=== PATIENT | male | born 1960 | race Caucasian/White ===

== ENCOUNTER 2018-04-01 03:29 | Emergency (ER) | payer SELFPAY ==
[2018-04-01 03:30] VITALS: BP 169/100; PULSE 82; RESP 20; TEMP 38.7; O2SAT 94; BMI 30.2
[2018-04-01 03:39] VITALS: BP 169/100; PULSE 82; RESP 20; TEMP 38.7; O2SAT 94
--- NOTE | 2018-04-01 03:45 | RAD_ITS ---
STUDY: X-RAY CHEST REASON FOR EXAM: Male, 57 years old. Cough TECHNIQUE: Single AP portable view of the chest. COMPARISON: None. FINDINGS: The lungs are clear and expanded. There is no demonstrated pleural abnormality. Normal size heart. Normal mediastinum and joselin. Normal visualized pulmonary arteries. Normal visualized aortic arch and descending thoracic aorta. Normal visualized thoracic spine. Normal visualized ribs, clavicles, and shoulders. There is no demonstrated abnormality of the visualized soft tissue structures of the upper abdomen. RAD/Chest 1 View (Portable) IMPRESSION: Normal x-ray examination of the chest. Electronically Signed: Car Graves MD at 5:02 EST Tel , Service support ,
--- NOTE | 2018-04-01 03:49 | ED.DCSUM_ITS ---
- ER Visit Summary Date of Service: 04/01/18 Chief Complaint: Headache, dizzy, wheezing History of Present Illness: The patient is a 57 M who got sick on March 28 while at work. He states he developed a fever up to 102.1 and had generalized body aches. He was sent home from work early. He has continued to have body aches, fever, congestion and cough with clear sputum. He denies nausea, vomiting, or diarrhea. He reports poor appetite. Physical Examination: Blood pressure is 169/100, temperature 101.6, heart rate 82, respiratory rate 20, pulse ox 94% on room air. Patient sitting upright in bed. He is nontoxic appearing. Head neck examination was TMs to be clear bilaterally. He has moist mucous membranes and unremarkable posterior pharynx. He does have bilateral cervical lymphadenopathy. There is no meningismus. Heart is regular rate and rhythm. Lungs sounds are slightly diminished throughout. Abdomen is soft and nontender. Test Results: CBC and chemistry studies are unremarkable. Portable chest x-ray shows no focal infiltrate. Emergency Department Course and Treatment: Patient received aerosols, Toradol, Tylenol, and IV fluids. On repeat evaluation temperature is 99.3. Patient has improved air movement throughout on auscultation. I believe the patient does have influenza. Patient is outside the treatment window with Tamiflu. This was discussed with him at length. Will be given an inhaler for home. Treatment Plan: [] Disposition: Discharge Impression: Influenza This note was generated with [employer] dictation software. It may contain incorrect words, spelling, and punctuation that were not noted in review of the chart prior to signing ED Disposition - Plan for ED Patient: Referrals: NOT,DEFINED [NON-STAFF] -
[2018-04-01 03:51] VITALS: PULSE 94; RESP 16
[2018-04-01] MEDS: Ipratropium/Albuterol Sulfate 3 ML AMPUL.NEB INHALATION (03:51)
[2018-04-01 04:04] VITALS: PULSE 97; RESP 21
[2018-04-01] MEDS: Acetaminophen 325 MG Tablet 650 MG PO (04:04)
[2018-04-01] MEDS: Albuterol 2.5 MG/3 ML VIAL.NEB. INHALATION ×2 (04:04)
[2018-04-01] MEDS: 0.9% Normal Saline 1,000 ML 1000 ML IV (04:04)
[2018-04-01] MEDS: Ketorolac 30 MG/ML Syringe IV (04:05)
[2018-04-01 04:09] LABS: Absolute Lymphocyte Count 1.93 X10^3/ul (0.83-4.51); Absolute Neutrophil Count 6.8 X10^3/uL (2.0-7.7); Basophil# 0.03 X10^3/uL; Basophil% 0.3 % (0-1); Eosinophil# 0.42 X10^3/uL; Eosinophils% 4.1 % (0-5); Hematocrit 42.3 % (40-54); Hemoglobin 13.8 g/dl (13.0-16.5); Lymphocyte # 1.93 X10^3/ul (4.0); Mean Corp Hgb Conc 32.6 g/gl (32-36); Mean Corpuscular Hgb 27.2 pg (27.0-32.0); Mean Corpuscular Volume 83.3 fL (80-94); Mean Platelet Vol. 10.1 fl (6.2-12.0); Monocyte# 0.94 X10^3/uL; Monocyte% 9.3 % (0-10); Neutrophil # 6.79 X10^3/uL (2.7-7.7); Platelet Count 220 K/mm3 (150-450); RBC Distribution Width SD 42.2 fl (35.1-43.9); Red Blood Count 5.08 M/mm3 (4.6-6.2); White Blood Count 10.1 K/mm3 (4.4-11.0)
[2018-04-01 04:13] LABS: POSITIVE COUNT NO; POSITIVE DIFFERENTIAL NO; POSITIVE MORPHOLOGY NO
[2018-04-01 04:19] LABS: Anion Gap 10 (5-15); BUN 17 mg/dL (7-18); BUN/Creat Ratio 16.5 RATIO (10-20); Calcium,Total 8.8 mg/dL (8.5-10.1); Chloride 103 mmol/L (98-107); Creatinine, Serum 1.03 mg/dL (0.70-1.30); EST Glomerular Filtration Rate 78 mL/min (>60); Est Glom Filt Rate - Afr Amer 95 mL/min (>60); Estimated Creatinine Clearance 79.73 ml/min; Glucose 125 mg/dL (74-106); Potassium 4.1 mmol/L (3.5-5.1); Sodium Level 139 mmol/L (136-145)
[2018-04-01 05:12] VITALS: BP 127/67; PULSE 93; RESP 18; TEMP 37.4; O2SAT 94
--- NOTE | 2018-04-01 05:15 | ED.DEP ---
ED Disposition - Plan for ED Patient: Disposition: Home or Assisted Living Instructions: ED Flu Referrals: Darryl Louis MD [STAFF PHYSICIAN] - 1 Week
[2018-04-01 05:31] VITALS: BP 125/74; PULSE 88; RESP 18; O2SAT 94
== END 2018-04-01 05:33 | disposition home or self-care (01) ==
PROVIDERS: Emergency Provider Emergency Medicine
DX: J11.1 Influenza due to unidentified influenza virus with other respiratory manifestations (principal); Z87.891 Personal history of nicotine dependence
CPT/HCPCS: 71045; 80048; 85025; 94640; 96361; 96374; 99284; J7030; A4216